=== PATIENT | female | born 1955 | race Caucasian/White ===

== ENCOUNTER 2016-03-31 13:41 | Emergency (ER) | payer BC ==
[2016-03-31 14:13] VITALS: BP 106/62
--- NOTE | 2016-03-31 14:36 | UC ---
Back Pain HPI - HPI Summary HPI Summary: muscular pain left upper back around scapula. Hurts with movement, cough. Has had "cold" hanging on for 4 weeks, now with sinus pressure and green drainage. Low energy, malaise, low-grade headache. No fever. Called her MD, and they referred her here to be sure she doesn't have pneumonia. - History of Current Complaint Chief Complaint: UCUpperExtremity Stated Complaint: BACK PAIN Time Seen by Provider: 03/31/16 14:19 Hx Obtained From: Patient Onset/Duration: Gradual Onset Timing: Constant Severity Initially: Mild Severity Currently: Moderate Character: Dull, Aching, Stiffness Aggravating: Movement, Lifting, Bending, Walking, Cough - mild, dry Alleviating: Rest, Position Associated Signs And Symptoms: Positive: Weakness, Pain with Weight Bearing - Risk Factors AAA Risk Factors: Negative TAD Risk Factors: Negative Cauda Equina Risk Factors: Negative Epidural Abscess Risk Factors: Negative - Allergies/Home Medications Allergies/Adverse Reactions: Allergies Allergy/AdvReac Type Severity Reaction Status Date / Time No Known Allergies Allergy Verified 03/31/16 14:05 Home Medications: Home Medications Atorvastatin* [Lipitor*] 10 mg PO DAILY 03/31/16 [History Confirmed 03/31/16] Cyclobenzaprine TAB* [Flexeril TAB*] 10 mg PO TID PRN 03/31/16 [History Confirmed 03/31/16] Olmesartan (NF) [Benicar (NF)] 20 mg PO DAILY 03/31/16 [History Confirmed ] Sertraline* [Zoloft*] 50 mg PO BEDTIME 03/31/16 [History Confirmed 03/31/16] PMH/Surg Hx/FS Hx/Imm Hx Endocrine History Of: Denies: Diabetes, Thyroid Disease Cardiovascular History Of: Reports: Hypertension Respiratory History Of: Denies: Asthma - Surgical History Surgical History: Yes Surgery Procedure, Year, and Place: tubal ligation - Family History Known Family History: Negative: Respiratory Disease - no asthma - Social History Occupation: Retired Lives: With Family Alcohol Use: Occasionally Substance Use Type: None Smoking Status (MU): Heavy Every Day Tobacco Smoker Type: Cigarettes Amount Used/How Often: 1/2 pack daily Review of Systems Constitutional: Fatigue Skin: Negative Eyes: Negative ENT: Nasal Discharge Respiratory: Cough - dry Cardiovascular: Negative Gastrointestinal: Negative Genitourinary: Negative Motor: Negative Neurovascular: Negative Musculoskeletal: Negative Neurological: Headache Psychological: Negative All Other Systems Reviewed And Are Negative: Yes Physical Exam Triage Information Reviewed: Yes Appearance: Well-Appearing, No Pain Distress, Well-Nourished Vital Signs: Initial Vital Signs Temp 98.1 F 03/31/16 14:08 Pulse 63 03/31/16 14:08 Resp 18 03/31/16 14:08 BP 106/62 03/31/16 14:08 Pulse Ox 100 03/31/16 14:08 Vital Signs Reviewed: Yes Eye Exam: Normal ENT: Positive: Hearing grossly normal, Pharynx normal, Nasal congestion, Nasal drainage, TMs normal. Negative: Tonsillar swelling, Tonsillar exudate, Trismus , Muffled/hoarse voice Neck exam: Normal Respiratory Exam: Normal Respiratory: Positive: Lungs clear, Normal breath sounds, No respiratory distress, No accessory muscle use Cardiovascular Exam: Normal Musculoskeletal Exam: Normal Neurological Exam: Normal Psychological Exam: Normal Skin Exam: Normal Back Pain Course/Dx - Differential Dx/Diagnosis Differential Diagnosis/HQI/PQRI: Strain, Other - pneumonia Provider Diagnoses: sinusitis; muscle strain Discharge - Discharge Plan Condition: Stable Disposition: HOME Prescriptions: Carisoprodol [Soma] 350 mg PO TID PRN #20 tab MDD 3 tab PRN Reason: back spasms Cephalexin CAP* [Keflex 500 CAP*] 500 mg PO TID #30 cap Meloxicam [Mobic] 15 mg PO DAILY PRN #20 tab PRN Reason: back pain Patient Education Materials: Sinusitis (ED), Muscle Strain (ED) Referrals: Sugar Moore NP [Primary Care Provider] -
== END 2016-03-31 14:48 | disposition home or self-care (01) ==
LOC: UCCORT 13:41
DX: S29.012A Strain of muscle and tendon of back wall of thorax, initial encounter (principal); X58.XXXA Exposure to other specified factors, initial encounter; Y93.9 Activity, unspecified; Y92.9 Unspecified place or not applicable; J32.9 Chronic sinusitis, unspecified; I10 Essential (primary) hypertension; F17.210 Nicotine dependence, cigarettes, uncomplicated
CPT/HCPCS: 99212; G0463

== ENCOUNTER 2018-03-25 11:05 | Emergency (ER) | payer BC ==
[2018-03-25 12:46] VITALS: BP 160/89
--- NOTE | 2018-03-25 13:16 | UC ---
Throat Pain/Nasal Zackery HPI - HPI Summary HPI Summary: Patient has had left maxillary sinus pressure for the past 2 weeks, has become sever. She has also had left eye drainage for the past few days. Does have a cough and is complaining of thorasic back pain across the rhomboids. She is a smoker - History of Current Complaint Chief Complaint: UCRespiratory Stated Complaint: COUGH,SINUS AND EYE COMPLAINT Time Seen by Provider: 03/25/18 12:44 Hx Obtained From: Patient ?: No Onset/Duration: Sudden Onset, Lasting Weeks Severity: Moderate Pain Intensity: 7 Associated Signs & Symptoms: Positive: Wheezing, Sinus Discomfort, Nasal Discharge - Allergies/Home Medications Allergies/Adverse Reactions: Allergies Allergy/AdvReac Type Severity Reaction Status Date / Time No Known Allergies Allergy Verified 03/25/18 12:35 PMH/Surg Hx/FS Hx/Imm Hx Previously Healthy: Yes - Surgical History Surgical History: Yes Surgery Procedure, Year, and Place: tubal ligation. BILATERAL CATARACHS - Family History Known Family History: Negative: Respiratory Disease - no asthma - Social History Alcohol Use: Occasionally Substance Use Type: None Smoking Status (MU): Current Every Day Smoker Type: Cigarettes Amount Used/How Often: 1/2 pack daily Review of Systems All Other Systems Reviewed And Are Negative: Yes Constitutional: Positive: Negative Skin: Positive: Negative Eyes: Positive: Drainage, Eye Redness ENT: Positive: Nasal Discharge, Sinus Congestion, Sinus Pain/Tenderness Respiratory: Positive: Cough Cardiovascular: Positive: Negative Gastrointestinal: Positive: Negative Genitourinary: Positive: Negative Motor: Positive: Negative Neurovascular: Positive: Negative Musculoskeletal: Positive: Negative Neurological: Positive: Headache Psychological: Positive: Negative Is Patient Immunocompromised?: No Physical Exam Triage Information Reviewed: Yes Appearance: Well-Nourished, Ill-Appearing, Pain Distress Vital Signs: Initial Vital Signs Temp 98.3 F 03/25/18 12:38 Pulse 92 03/25/18 12:38 Resp 20 03/25/18 12:38 BP 160/89 03/25/18 12:38 Pulse Ox 100 03/25/18 12:38 Vital Signs Reviewed: Yes Eye Exam: Normal ENT: Positive: Pharyngeal erythema, Nasal congestion - left nare is inflammed and swollen, TMs normal Dental Exam: Normal Neck exam: Normal Neck: Positive: Supple, Nontender, No Lymphadenopathy Respiratory Exam: Normal Respiratory: Positive: Chest non-tender, Lungs clear, Normal breath sounds Cardiovascular Exam: Normal Cardiovascular: Positive: RRR, No Murmur, Pulses Normal Abdominal Exam: Normal Abdomen Description: Positive: Nontender, No Organomegaly, Soft Musculoskeletal Exam: Normal Neurological Exam: Normal Psychological Exam: Normal Skin Exam: Normal Throat Pain/Nasal Course/Dx - Course Course Of Treatment: hx obtained, exam performed ,meds reviewed, treated for left maxillary sinusitis - Differential Dx/Diagnosis Differential Diagnosis/HQI/PQRI: Otitis Media, Pharyngitis, Sinusitis, URI Provider Diagnosis: Left maxillary sinusitis Discharge - Sign-Out/Discharge Documenting (check all that apply): Patient Departure All imaging exams completed and their final reports reviewed: No Studies - Discharge Plan Condition: Stable Disposition: HOME Prescriptions: Amoxicillin PO (*) [Amoxicillin 875 MG (*)] 875 mg PO BID #20 tab predniSONE [Prednisone 20 MG TAB] 40 mg PO DAILY #10 tablet Patient Education Materials: Sinusitis (ED) Referrals: Sugar Moore [employer] [Primary Care Provider] - Additional Instructions: 1. take the medication as prescribed. 2. Warm compresses to the left side of face for sinus pain 3. Use the flonase daily for at least 2 weeks 4. Cut out the smoking to help with healing. 5. FOllow up as needed. - Billing Disposition and Condition Condition: STABLE Disposition: Home
== END 2018-03-25 13:15 | disposition home or self-care (01) ==
LOC: UCCORT 11:05
DX: J32.0 Chronic maxillary sinusitis (principal); F17.210 Nicotine dependence, cigarettes, uncomplicated
CPT/HCPCS: 99212; G0463